=== PATIENT | male | born 1990 | race Caucasian/White ===

== ENCOUNTER 2020-04-03 06:46 | Outpatient (NON) | payer OTHER, SELFPAY ==
[2020-04-04 00:45] LABS: SARS-CoV-2 RNA PCR Negative
== END 2020-04-03 06:47 ==
LOC: ANHCOVIDDT 06:47
PROVIDERS: PCP Internal Medicine; Visit Provider Internal Medicine
DX: R68.89 Other general symptoms and signs (principal); Z20.828 Contact with and (suspected) exposure to other viral communicable diseases
CPT/HCPCS: 87635; C9803; U0003

== ENCOUNTER 2020-05-28 07:09 | Outpatient (CLI) | payer OTHER, SELFPAY ==
[2020-05-28 08:35] LABS: Alanine Aminotransferase 53 U/L (4-50); Alkaline Phosphatase 54 U/L (38-126); Anion Gap 10 mmol/L (8-16); Aspartate Amino Transferase 43 U/L (17-59); Bilirubin,Total 0.7 mg/dL (0.2-1.3); Blood Urea Nitrogen 14 mg/dL (9-20); Calcium 9.9 mg/dL (8.4-10.2); Carbon Dioxide 28 mmol/L (22-30); Chloride 101 mmol/L (98-107); Cholesterol 184 mg/dL (0-200); Estimated Glomerular Filt Rate > 60; Glucose 87 mg/dL (75-110); HDL Direct 50 mg/dL; Sodium 139 mmol/L (137-145); Triglycerides 168 mg/dL (<150)
[2020-05-28 08:47] LABS: LDL Cholesterol Direct 117 mg/dL
[2020-05-28 09:39] LABS: Folic Acid 11.8 ng/mL (2.76->20)
[2020-05-28 10:31] LABS: Free T4 Free Thyroxine 1.15 ng/mL (0.78-2.19)
[2020-06-01 06:37] LABS: Triiodothyronine T3 Free 2.7 pg/mL (2.3-4.2)
[2020-06-02 04:54] LABS: Thyroid Peroxidase Antibodies <1 IU/mL (<9)
== END 2020-05-28 07:10 | disposition home or self-care (01) ==
PROVIDERS: PCP Internal Medicine; Visit Provider Internal Medicine Endocrinology, Diabetes & Metabolism
DX: E03.9 Hypothyroidism, unspecified (principal); Z13.220 Encounter for screening for lipoid disorders
CPT/HCPCS: 36415; 80053; 80061; 82607; 82746; 84439; 84481; 86376

== ENCOUNTER 2020-08-01 12:34 | Outpatient (CLI) | payer OTHER, SELFPAY ==
--- NOTE | ~2020-08-01 | MR_ITS ---
EXAMINATION: MR lumbar spine wo con EXAM DATE: 08/01/2020 13:50 INDICATION: Hyperreflexia. Urinary retention, constipation. Low back pain. TECHNIQUE: Multi-sequential, multiplanar MR images of the lumbar spine were obtained without contrast . Sagittal T1, T2, T2 fat saturation images. Axial T2 weighted images. Correlation is made to lumba r x-ray 2015. FINDINGS: The conus medullaris terminates at the L1/2 level and has normal signal intensity and morph ology. There is mild disc disease at L5-S1. The vertebral bodies are aligned in the AP dimension. Th ere are no suspicious marrow signal abnormalities. Paraspinal soft tissue is unremarkable. Level by level evaluation: T12-L1: Disc does not extend beyond the endplate margin. Facet arthropathy: None. Neural foraminal stenosis: No stenosis. Central canal stenosis: No stenosis. L1-L2: Disc does not extend beyond the endplate margin. Facet arthropathy: None. Neural foraminal stenosis: No stenosis. Central canal stenosis: No stenosis. L2-L3: Disc does not extend beyond the endplate margin. Facet arthropathy: Minimal. Neural foraminal stenosis: No stenosis. Central canal stenosis: No stenosis. L3-L4: There is a minimal diffuse disc bulge. Facet arthropathy: Mild. Neural foraminal stenosis: No stenosis. Central canal stenosis: No stenosis. L4-L5: There is a mild diffuse disc bulge. Facet arthropathy: Mild. Neural foraminal stenosis: Minimal bilateral. Central canal stenosis: No stenosis. L5-S1: There is a mild diffuse disc bulge. Facet arthropathy: Minimal. Neural foraminal stenosis: Mild left. Central canal stenosis: No stenosis. IMPRESSION: 1. Mild lumbar spondylosis. Reviewed, dictated and finalized at location A. IMPRESSION: 1. Mild lumbar spondylosis.
--- NOTE | ~2020-08-01 | MR_ITS ---
EXAMINATION: MR cervical spine wo con EXAM DATE: 08/01/2020 13:34 INDICATION: Hyperreflexia. Occipital pain, neck pain. Hand tremors. Headaches. TECHNIQUE: Multi-sequential, multiplanar MR images of the cervical spine were obtained without contra st. Axial T2, axial T2 MERGE sequence. Sagittal T1, T2, T2 fat saturation images also obtained. Th ere is no prior study for comparison. FINDINGS: The vertebral bodies are aligned in the AP dimension. Vertebral body and disc heights are well-maintained. The spinal cord signal intensity and intrinsic morphology is normal. Cervicomedullar y junction is normal in appearance. There are no suspicious marrow signal abnormalities. Paraspinal s oft tissue is unremarkable. Level by level evaluation: C2-C3: Disc does not extend beyond the endplate margin. Uncovertebral joint arthropathy: None. Facet joint arthropathy: Mild bilateral. Neural foraminal stenosis: No stenosis. Central canal stenosis: No stenosis. C3-C4: Disc does not extend beyond the endplate margin. Uncovertebral joint arthropathy: None. Facet joint arthropathy: Mild bilateral. Neural foraminal stenosis: No stenosis. Central canal stenosis: No stenosis. C4-C5: Disc does not extend beyond the endplate margin. Uncovertebral joint arthropathy: None. Facet joint arthropathy: Minimal bilateral. Neural foraminal stenosis: No stenosis. Central canal stenosis: No stenosis. C5-C6: There is a minimal diffuse disc bulge. Uncovertebral joint arthropathy: Mild left. Facet joint arthropathy: Mild right. Neural foraminal stenosis: Mild right. Central canal stenosis: No stenosis. C6-C7: There is a mild diffuse disc bulge. Uncovertebral joint arthropathy: Mild to moderate right, mild left. Facet joint arthropathy: Mild to moderate right, mild left. Neural foraminal stenosis: Mild to moderate right. Central canal stenosis: No stenosis. C7-T1: Disc does not extend beyond the endplate margin. Uncovertebral joint arthropathy: None. Facet joint arthropathy: Mild right. Neural foraminal stenosis: No stenosis. Central canal stenosis: No stenosis. IMPRESSION: 1. C6-7 mild to moderate arthropathy, less at other levels. Reviewed, dictated and finalized at location A.
== END 2020-08-01 12:35 | disposition home or self-care (01) ==
PROVIDERS: PCP Internal Medicine
DX: R29.2 Abnormal reflex (principal); R51.9 Headache, unspecified; M47.813 Spondylosis without myelopathy or radiculopathy, cervicothoracic region; M47.817 Spondylosis without myelopathy or radiculopathy, lumbosacral region
CPT/HCPCS: 72141; 72148

== ENCOUNTER 2020-09-04 08:43 | Outpatient (CLI) | payer OTHER, SELFPAY ==
[2020-09-04 09:12] LABS: Alanine Aminotransferase 43 U/L (4-50); Albumin Level 4.8 g/dL (3.5-5.1); Alkaline Phosphatase 49 U/L (38-126); Anion Gap 6 mmol/L (8-16); Aspartate Amino Transferase 53 U/L (17-59); Bilirubin,Total 0.3 mg/dL (0.2-1.3); Blood Urea Nitrogen 12 mg/dL (9-20); Calcium 9.7 mg/dL (8.4-10.2); Carbon Dioxide 29 mmol/L (22-30); Chloride 107 mmol/L (98-107); Estimated Glomerular Filt Rate > 60; Glucose 97 mg/dL (75-110); Potassium 4.2 mmol/L (3.4-5.0); Sodium 142 mmol/L (137-145)
[2020-09-04 09:43] LABS: Thyroid Stimulating Hormone < 0.015 uIU/mL (0.465-4.680)
[2020-09-04 10:11] LABS: Free T4 Free Thyroxine 1.06 ng/mL (0.78-2.19)
[2020-09-08 04:58] LABS: Thyroid Peroxidase Antibodies <1 IU/mL (<9)
[2020-09-08 06:09] LABS: Triiodothyronine T3 Free 3.5 pg/mL (2.3-4.2)
== END 2020-09-04 08:44 | disposition home or self-care (01) ==
PROVIDERS: PCP Internal Medicine; Visit Provider Internal Medicine Endocrinology, Diabetes & Metabolism
DX: E03.9 Hypothyroidism, unspecified (principal)
CPT/HCPCS: 36415; 80053; 84439; 84443; 84481; 86376

== ENCOUNTER → 2020-10-14 12:56 | Outpatient (REF) | payer OTHER, SELFPAY | LOC: ANHLAB 12:56 | PROVIDERS: PCP Internal Medicine; Visit Provider Nurse Practitioner | DX: D49.2 Neoplasm of unspecified behavior of bone, soft tissue, and skin (principal) | CPT/HCPCS: 88305 ==

== ENCOUNTER 2020-11-27 11:52 | Outpatient (CLI) | payer OTHER, SELFPAY ==
[2020-11-27 12:12] LABS: Basophils Percent Auto 0.4 % (0.2-1.2); Eosinophils Absolute Auto 0.2 K/mm3 (0-0.3); Eosinophils Percent Auto 2.2 % (0-4.4); Hematocrit 41.3 % (42.0-52.0); Hemoglobin 13.8 g/dL (14.0-18.0); Immature Granulocyte Absolute 0.02 K/mm3 (0.00-0.031); Immature Granulocyte Percent A 0.3 % (0-0.5); Lymphocytes Percent Auto 37.7 % (18.3-44.2); Mean Corpuscular HGB Conc 33.4 g/dl (32-36); Mean Corpuscular Hemoglobin 28.8 pg (26-34); Mean Platelet Volume 8.9 fl (7.4-10.4); Monocytes Absolute Auto 0.5 K/mm3 (0.1-0.6); Monocytes Percent Auto 6.4 % (2.6-8.5); Neutrophils Absolute Auto 3.8 K/mm3 (1.3-6.7); Platelet Count Result 342 k/mm3 (150-375); Red Cell Distribution Width 12.8 % (11.5-14.5); White Blood Count 7.2 K/mm3 (4.5-10.0)
[2020-11-27 12:24] LABS: Alanine Aminotransferase 71 U/L (4-50); Albumin Level 4.6 g/dL (3.5-5.1); Alkaline Phosphatase 45 U/L (38-126); Anion Gap 10 mmol/L (8-16); Aspartate Amino Transferase 53 U/L (17-59); Bilirubin,Total 0.5 mg/dL (0.2-1.3); Blood Urea Nitrogen 10 mg/dL (9-20); Calcium 9.4 mg/dL (8.4-10.2); Carbon Dioxide 26 mmol/L (22-30); Chloride 101 mmol/L (98-107); Cholesterol 178 mg/dL (0-200); Estimated Glomerular Filt Rate > 60; Glucose 96 mg/dL (65-110); HDL Direct 39 mg/dL; Sodium 137 mmol/L (137-145); Triglycerides 190 mg/dL (<150)
[2020-11-27 12:35] LABS: LDL Cholesterol Direct 101 mg/dL
[2020-11-27 12:53] LABS: Thyroid Stimulating Hormone < 0.015 uIU/mL (0.465-4.680)
[2020-11-27 13:05] LABS: Free T4 Free Thyroxine 1.01 ng/mL (0.78-2.19); Vitamin D 25 Hydroxy 53.4 ng/mL
== END 2020-11-27 11:53 | disposition home or self-care (01) ==
LOC: ANHLAB 11:55
PROVIDERS: PCP Internal Medicine; Visit Provider Internal Medicine
DX: E03.9 Hypothyroidism, unspecified (principal); E55.9 Vitamin D deficiency, unspecified; F33.9 Major depressive disorder, recurrent, unspecified; G25.0 Essential tremor; J45.30 Mild persistent asthma, uncomplicated; R25.1 Tremor, unspecified; Z92.3 Personal history of irradiation; E78.2 Mixed hyperlipidemia
CPT/HCPCS: 36415; 80053; 80061; 82306; 84439; 84443; 85025

== ENCOUNTER 2020-11-29 12:07 | Outpatient (CLI) | payer OTHER, SELFPAY ==
[2020-11-29 12:38] LABS: Add Urine Microscopic? YES; Appearance Urine Clear (Clear); Bilirubin Urine Negative (Negative); Blood Urine Negative (Negative); Color Urine Yellow (Yellow); Glucose Urine UA Negative (Negative); Ketones Urine Negative (Negative); Leukocyte Esterase Ur Negative LEU/UL (Negative); Mucus Urine Few /lpf; Nitrate Urine Negative (Negative); Protein Urine Negative (Negative); RBC Urine 0-2 /hpf (0-2); Specific Grav Ur 1.027 (1.001-1.035); Squamous Epithelial Cell Urine Rare /hpf (Few); WBC Urine 0-3 /hpf
== END 2020-11-29 12:08 | disposition home or self-care (01) ==
LOC: ANHLAB 12:08
PROVIDERS: PCP Internal Medicine; Visit Provider Internal Medicine
DX: N39.0 Urinary tract infection, site not specified (principal)
CPT/HCPCS: 81001

== ENCOUNTER 2021-03-12 07:35 | Outpatient (CLI) | payer OTHER, SELFPAY ==
[2021-03-12 08:22] LABS: Basophils Percent Auto 0.5 % (0.2-1.2); Eosinophils Absolute Auto 0.2 K/mm3 (0-0.3); Eosinophils Percent Auto 2.3 % (0-4.4); Hematocrit 44.4 % (42.0-52.0); Hemoglobin 14.9 g/dL (14.0-18.0); Immature Granulocyte Absolute 0.01 K/mm3 (0.00-0.031); Immature Granulocyte Percent A 0.2 % (0-0.5); Lymphocytes Absolute Auto 2.19 K/mm3 (0.9-3.2); Lymphocytes Percent Auto 33.3 % (18.3-44.2); Mean Corpuscular HGB Conc 33.6 g/dl (32-36); Mean Corpuscular Hemoglobin 29.7 pg (26-34); Mean Corpuscular Volume 88.4 fl (80-100); Mean Platelet Volume 9.6 fl (7.4-10.4); Monocytes Absolute Auto 0.4 K/mm3 (0.1-0.6); Monocytes Percent Auto 5.6 % (2.6-8.5); Neutrophils Absolute Auto 3.8 K/mm3 (1.3-6.7); Neutrophils Percent Auto 58.1 % (45.5-73.1); Platelet Count Result 365 k/mm3 (150-375); Red Blood Count 5.02 M/mm3 (4.6-6.20); White Blood Count 6.6 K/mm3 (4.5-10.0)
[2021-03-12 08:40] LABS: Alanine Aminotransferase 56 U/L (4-50); Alkaline Phosphatase 49 U/L (38-126); Anion Gap 11 mmol/L (8-16); Aspartate Amino Transferase 38 U/L (17-59); Bilirubin,Total 0.5 mg/dL (0.2-1.3); Blood Urea Nitrogen 10 mg/dL (9-20); Carbon Dioxide 27 mmol/L (22-30); Chloride 102 mmol/L (98-107); Estimated Glomerular Filt Rate > 60; Glucose 95 mg/dL (65-110); Potassium 4.4 mmol/L (3.4-5.0); Sodium 140 mmol/L (137-145)
[2021-03-12 09:09] LABS: Thyroid Stimulating Hormone < 0.015 uIU/mL (0.465-4.680)
[2021-03-12 09:46] LABS: Folic Acid 9.6 ng/mL (2.76->20)
[2021-03-12 10:09] LABS: Free T4 Free Thyroxine 1.08 ng/mL (0.78-2.19)
[2021-03-16 07:08] LABS: Triiodothyronine T3 Free 3.3 pg/mL (2.3-4.2)
== END 2021-03-12 07:36 | disposition home or self-care (01) ==
LOC: ANHLAB 07:38
PROVIDERS: PCP Internal Medicine; Visit Provider Internal Medicine Endocrinology, Diabetes & Metabolism
DX: E03.9 Hypothyroidism, unspecified (principal); R53.83 Other fatigue
CPT/HCPCS: 36415; 80053; 82607; 82746; 84439; 84443; 84481; 85025

== ENCOUNTER 2021-04-01 19:29 | Emergency (ER) | payer OTHER, SELFPAY ==
--- NOTE | ~2021-04-01 | CT_ITS ---
EXAMINATION: CT brain wo con EXAM DATE: 04/01/2021 23:04 INDICATION: Severe headache, dizziness. TECHNIQUE: Spiral CT of the head was performed without contrast. Axial, coronal and sagittal images were reviewed. The dose-length product (DLP) for this examination was 605.33 mGy-cm. The exposure w as tailored according to patient size, and iterative reconstruction (ASIR) was used as additional dos e reduction technique. There is no prior study for comparison. FINDINGS: There is no acute intraparenchymal hemorrhage. No evidence of intraparenchymal brain mass lesion. No evidence of acute infarction. There is no mass effect or midline shift. The ventricles are normal in size. There are no extra-axial collections. There are no acute calvarial fractures. T he orbits are unremarkable. Soft tissue is unremarkable. The visualized sinuses and mastoid air rian ls are well aerated. IMPRESSION: 1. Unremarkable head CT examination. Reviewed, dictated and finalized at location A. OR POLISHER
--- NOTE | ~2021-04-01 | XR_ITS ---
EXAMINATION: XR chest 2V DATE: 04/01/2021 23:01 INDICATION: Left-sided chest pain. TECHNIQUE: PA and lateral views of the chest were obtained. COMPARISON: Chest radiograph date FINDINGS: The lungs remain clear with no focal airspace opacities, pulmonary edema, pleural effusion or pneumot horax. The cardiomediastinal silhouette is normal. Mild thoracic dextrocurvature. IMPRESSION: 1. No acute cardiopulmonary disease. Reviewed, dictated and finalized at location A. MAKER EXPERIMENTAL
[2021-04-01 19:39] VITALS: BP 147/91; PULSE 100; RESP 20; TEMP 36; O2SAT 100
--- NOTE | 2021-04-01 21:11 | PC.NURSE ---
Charge nurse to wr to update pts on delay.
--- NOTE | 2021-04-01 21:20 | PC.NURSE ---
Pt ambulatory with steady, even, unassisted gait. speech clear. resps even, nonlabored. no confusion noted. a/o x 4 with appropriate speech, mannerisms, movements.
[2021-04-01 22:45] VITALS: BP 128/81; PULSE 97; RESP 14; O2SAT 99
--- NOTE | 2021-04-01 22:53 | ECG_ITS ---
Measurements Intervals [place] Rate: 86 P: 50 HI: 188 QRS: 65 QRSD: 94 T: 48 QT: 328 QTc: 393 Interpretive Statements SINUS RHYTHM BASELINE WANDER- I, II, AVR, AVF, V1 NORMAL ECG Electronically Signed On 04-02-2021 7:53:20 TRANSPLANT COORDINATOR by Memo Ren D.O.
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
[2021-04-01 23:20] LABS: Basophils Percent Auto 0.5 % (0.2-1.2); Eosinophils Absolute Auto 0.2 K/mm3 (0-0.3); Eosinophils Percent Auto 2.1 % (0-4.4); Hematocrit 43.4 % (42.0-52.0); Hemoglobin 14.6 g/dL (14.0-18.0); Immature Granulocyte Absolute 0.01 K/mm3 (0.00-0.031); Immature Granulocyte Percent A 0.1 % (0-0.5); Lymphocytes Absolute Auto 2.57 K/mm3 (0.9-3.2); Mean Corpuscular HGB Conc 33.6 g/dl (32-36); Mean Corpuscular Hemoglobin 29.4 pg (26-34); Mean Corpuscular Volume 87.5 fl (80-100); Mean Platelet Volume 9.1 fl (7.4-10.4); Monocytes Absolute Auto 0.4 K/mm3 (0.1-0.6); Monocytes Percent Auto 5.6 % (2.6-8.5); Neutrophils Absolute Auto 4.6 K/mm3 (1.3-6.7); Neutrophils Percent Auto 58.7 % (45.5-73.1); Platelet Count Result 384 k/mm3 (150-375); Red Blood Count 4.96 M/mm3 (4.6-6.20); Red Cell Distribution Width 13.1 % (11.5-14.5); White Blood Count 7.8 K/mm3 (4.5-10.0)
[2021-04-01 23:29] LABS: Alanine Aminotransferase 56 U/L (4-50); Albumin Level 5.4 g/dL (3.5-5.1); Alkaline Phosphatase 47 U/L (38-126); Anion Gap 17 mmol/L (8-16); Aspartate Amino Transferase 46 U/L (17-59); Bilirubin,Total 0.5 mg/dL (0.2-1.3); Blood Urea Nitrogen 15 mg/dL (9-20); Calcium 10.2 mg/dL (8.4-10.2); Carbon Dioxide 24 mmol/L (22-30); Chloride 101 mmol/L (98-107); Estimated CRCL calculation 94 ml/min; Estimated Glomerular Filt Rate > 60; Glucose 113 mg/dL (65-110); Potassium 3.9 mmol/L (3.4-5.0); Sodium 142 mmol/L (137-145)
[2021-04-01 23:41] LABS: Troponin I < 0.012 ng/mL (0.000-0.034)
[2021-04-02] LABS: Thyroid Stimulating Hormone < 0.015 uIU/mL (0.465-4.680)
[2021-04-02 00:25] VITALS: BP 118/71; PULSE 86; RESP 16; O2SAT 99
== END 2021-04-02 00:26 | disposition home or self-care (01) ==
PROVIDERS: Emergency Provider Emergency Medicine; PCP Internal Medicine
DX: R42 Dizziness and giddiness (principal); R94.6 Abnormal results of thyroid function studies; T38.1X5A Adverse effect of thyroid hormones and substitutes, initial encounter; E03.9 Hypothyroidism, unspecified; J45.30 Mild persistent asthma, uncomplicated; K21.9 Gastro-esophageal reflux disease without esophagitis; E55.9 Vitamin D deficiency, unspecified; K58.0 Irritable bowel syndrome with diarrhea; F41.1 Generalized anxiety disorder; F32.9 Major depressive disorder, single episode, unspecified; G47.33 Obstructive sleep apnea (adult) (pediatric); Z87.440 Personal history of urinary (tract) infections; Z85.828 Personal history of other malignant neoplasm of skin; Z87.891 Personal history of nicotine dependence
CPT/HCPCS: 36415; 70450; 71046; 80053; 84443; 84484; 85025; 93005; 99284

== ENCOUNTER 2021-04-11 09:10 | Outpatient (CLI) | payer OTHER, SELFPAY ==
[2021-04-11 10:05] LABS: Cholesterol 183 mg/dL (0-200); HDL Direct 45 mg/dL; Triglycerides 166 mg/dL (<150)
[2021-04-11 10:16] LABS: LDL Cholesterol Direct 106 mg/dL
[2021-04-11 10:30] LABS: Phosphorus 4.4 mg/dL (2.5-4.5)
[2021-04-11 10:36] LABS: Cortisol Random 6.52 ug/dL
[2021-04-11 10:42] LABS: Parathyroid Intact 33.6 pg/mL (7.5-53.5)
[2021-04-12 14:17] LABS: Vitamin D 25 Hydroxy 50.4 ng/mL
[2021-04-14 10:41] LABS: Adrenocorticotropic Hormone 10 pg/mL (6-50)
[2021-04-14 22:46] LABS: Prolactin 21.9 ng/mL (***)
== END 2021-04-11 09:11 | disposition home or self-care (01) ==
PROVIDERS: PCP Internal Medicine; Visit Provider Internal Medicine Endocrinology, Diabetes & Metabolism
DX: E78.2 Mixed hyperlipidemia (principal); E03.9 Hypothyroidism, unspecified; E83.52 Hypercalcemia
CPT/HCPCS: 36415; 80061; 82024; 82088; 82306; 82533; 83970; 84100; 84146; 84244

== ENCOUNTER 2021-05-21 08:50 | Outpatient (CLI) | payer OTHER, SELFPAY ==
[2021-05-21 09:41] LABS: Alanine Aminotransferase 45 U/L (4-50); Albumin Level 4.9 g/dL (3.5-5.1); Alkaline Phosphatase 45 U/L (38-126); Anion Gap 8 mmol/L (8-16); Aspartate Amino Transferase 35 U/L (17-59); Bilirubin,Total 0.4 mg/dL (0.2-1.3); Blood Urea Nitrogen 13 mg/dL (9-20); Calcium 9.6 mg/dL (8.4-10.2); Carbon Dioxide 26 mmol/L (22-30); Chloride 105 mmol/L (98-107); Estimated Glomerular Filt Rate > 60; Glucose 94 mg/dL (65-110); Phosphorus 3.7 mg/dL (2.5-4.5); Sodium 139 mmol/L (137-145)
[2021-05-21 09:53] LABS: Parathyroid Intact 34.2 pg/mL (7.5-53.5)
[2021-05-21 10:52] LABS: Free T4 Free Thyroxine 1.02 ng/mL (0.78-2.19); Vitamin D 25 Hydroxy 40.7 ng/mL
[2021-05-25 07:09] LABS: Triiodothyronine T3 Free 3.3 pg/mL (2.3-4.2)
== END 2021-05-21 08:51 | disposition home or self-care (01) ==
LOC: ANHLAB 08:57
PROVIDERS: PCP Internal Medicine; Visit Provider Internal Medicine Endocrinology, Diabetes & Metabolism
DX: E03.9 Hypothyroidism, unspecified (principal); E83.52 Hypercalcemia; R53.83 Other fatigue
CPT/HCPCS: 36415; 80053; 82024; 82088; 82306; 82533; 83970; 84100; 84244; 84439; 84443; 84481

== ENCOUNTER → 2021-08-13 00:10 | Outpatient (CLI) | payer OTHER, SELFPAY ==
[2021-08-13 14:05] LABS: SARS-CoV-2 RNA PCR Negative
== END ==
PROVIDERS: PCP Internal Medicine; Visit Provider Internal Medicine
DX: R68.89 Other general symptoms and signs (principal); Z20.822 Contact with and (suspected) exposure to COVID-19
CPT/HCPCS: C9803; U0003; U0005

== ENCOUNTER 2021-08-15 16:12 | Emergency (ER) | payer OTHER, SELFPAY ==
[2021-08-15 16:20] VITALS: BP 124/52; PULSE 72; RESP 16; TEMP 36.2; O2SAT 100
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
== END 2021-08-15 17:09 | disposition home or self-care (01) ==
PROVIDERS: Emergency Provider Registered Nurse; PCP Internal Medicine
DX: J06.9 Acute upper respiratory infection, unspecified (principal); R05.9 Cough, unspecified; Z87.891 Personal history of nicotine dependence; K21.9 Gastro-esophageal reflux disease without esophagitis; E03.9 Hypothyroidism, unspecified; G47.30 Sleep apnea, unspecified; F33.9 Major depressive disorder, recurrent, unspecified
CPT/HCPCS: 87804; 99213; G0463

== ENCOUNTER 2021-11-24 12:13 | Outpatient (CLI) | payer OTHER, SELFPAY ==
[2021-11-24 13:06] LABS: Alanine Aminotransferase 49 U/L (6-50); Alkaline Phosphatase 50 U/L (38-126); Anion Gap 11 mmol/L (8-16); Aspartate Amino Transferase 42 U/L (17-59); Bilirubin,Total 0.6 mg/dL (0.2-1.3); Blood Urea Nitrogen 13 mg/dL (9-20); Calcium 9.3 mg/dL (8.4-10.2); Carbon Dioxide 23 mmol/L (22-30); Chloride 104 mmol/L (98-107); Estimated Glomerular Filt Rate > 60; Glucose 89 mg/dL (65-110); Potassium 4.1 mmol/L (3.4-5.0); Sodium 138 mmol/L (137-145)
== END 2021-11-24 12:14 | disposition home or self-care (01) ==
LOC: ANHLAB 12:22
PROVIDERS: PCP Internal Medicine
DX: R80.9 Proteinuria, unspecified (principal)
CPT/HCPCS: 36415; 80053

== ENCOUNTER 2022-07-15 08:29 | Outpatient (CLI) | payer OTHER, SELFPAY ==
[2022-07-15 09:03] LABS: Alanine Aminotransferase 44 U/L (6-50); Albumin Level 4.7 g/dL (3.5-5.1); Alkaline Phosphatase 54 U/L (38-126); Anion Gap 9 mmol/L (8-16); Aspartate Amino Transferase 32 U/L (17-59); Bilirubin,Total 0.6 mg/dL (0.2-1.3); Blood Urea Nitrogen 9 mg/dL (9-20); Calcium 9.2 mg/dL (8.4-10.2); Carbon Dioxide 26 mmol/L (22-30); Chloride 105 mmol/L (98-107); Estimated Glomerular Filt Rate > 60; Glucose 91 mg/dL (65-110); Potassium 3.9 mmol/L (3.4-5.0); Sodium 140 mmol/L (137-145)
[2022-07-15 09:34] LABS: Cortisol Random 6.39 ug/dL; Thyroid Stimulating Hormone 0.117 uIU/mL (0.465-4.680)
[2022-07-15 10:03] LABS: Free T4 Free Thyroxine 1.04 ng/mL (0.78-2.19)
[2022-07-19 03:53] LABS: Adrenocorticotropic Hormone 7 pg/mL (6-50)
[2022-07-19 05:32] LABS: Triiodothyronine T3 Free 3.7 pg/mL (2.3-4.2)
== END 2022-07-15 08:30 | disposition home or self-care (01) ==
PROVIDERS: PCP Internal Medicine; Visit Provider Internal Medicine Endocrinology, Diabetes & Metabolism
DX: R53.83 Other fatigue (principal); E03.9 Hypothyroidism, unspecified
CPT/HCPCS: 36415; 80053; 82024; 82533; 84439; 84443; 84481

== ENCOUNTER 2022-08-12 08:48 | Outpatient (CLI) | payer OTHER, SELFPAY ==
[2022-08-12 11:22] LABS: Cortisol Random 0.81 ug/dL
[2022-08-23 11:36] LABS: Dexamethasone 278 ng/dL
== END 2022-08-12 08:49 | disposition home or self-care (01) ==
PROVIDERS: PCP Internal Medicine; Visit Provider Internal Medicine Endocrinology, Diabetes & Metabolism
DX: R89.1 Abnormal level of hormones in specimens from other organs, systems and tissues (principal)
CPT/HCPCS: 36415; 80299; 82533

== ENCOUNTER 2023-05-06 14:44 | Emergency (ER) | payer OTHER, SELFPAY ==
[2023-05-06 14:45] VITALS: BP 128/86; PULSE 84; RESP 16; TEMP 36.6; O2SAT 97
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
[2023-05-06 16:17] VITALS: BP 113/64; PULSE 78; RESP 16; O2SAT 100
== END 2023-05-06 16:21 | disposition home or self-care (01) ==
PROVIDERS: Emergency Provider Emergency Medicine; PCP Family Medicine
DX: H57.89 Other specified disorders of eye and adnexa (principal); T49.5X5A Adverse effect of ophthalmological drugs and preparations, initial encounter; E03.9 Hypothyroidism, unspecified; E55.9 Vitamin D deficiency, unspecified; N41.1 Chronic prostatitis; K21.9 Gastro-esophageal reflux disease without esophagitis; G47.33 Obstructive sleep apnea (adult) (pediatric); Z87.440 Personal history of urinary (tract) infections; Z87.891 Personal history of nicotine dependence
CPT/HCPCS: 99281